=== PATIENT | female | born 1995 | race Two or more races ===

== ENCOUNTER 2018-01-19 16:20 | Observation (INO) | payer MEDICAID ==
[~2018-01-19] VITALS: Ht 160 cm; Wt 70.3 kg
[2018-01-19] MEDS ORDERED: ACETAMINOPHEN 325 MG TAB PO ONE ×2 (17:30→17:34)
== END 2018-01-19 17:45 | disposition home or self-care (01) | DRG 566 ==
LOC: LDRP 16:20
PROVIDERS: ADMIT Obstetrics & Gynecology; ATTEND Obstetrics & Gynecology
DX: O26.892 Other specified pregnancy related conditions, second trimester (principal); H53.8 Other visual disturbances; R10.9 Unspecified abdominal pain; R51 Headache; Z3A.24 24 weeks gestation of pregnancy
CPT/HCPCS: 59025; 81002; G0378

== ENCOUNTER 2018-05-11 02:32 | Observation (INO) | payer MEDICAID ==
[2018-05-11] MEDS ORDERED: PREN-96 PO (09:30)
== END 2018-05-11 03:21 | disposition home or self-care (01) | DRG 566 ==
LOC: LDRP 02:32
PROVIDERS: ADMIT Obstetrics & Gynecology; ATTEND Obstetrics & Gynecology
DX: O62.9 Abnormality of forces of labor, unspecified (principal); O48.0 Post-term pregnancy; Z3A.40 40 weeks gestation of pregnancy
CPT/HCPCS: 59025; 81002; G0378

== ENCOUNTER 2018-05-11 07:20 | Inpatient (IN) | payer MEDICAID ==
[~2018-05-11] VITALS: Ht 154.9 cm; Wt 78.0 kg
[2018-05-11] MEDS ORDERED: LACTATED RINGER'S 1,000 ML IV SCH (08:16)
[2018-05-11] MEDS ORDERED: LACT. RINGERS/OXYTOCIN 20UNITS 1,000 ML IV SCH (08:16)
[2018-05-11] MEDS ORDERED: LIDOCAINE 2% (LOCAL ANESTH.) PF 5ml SDV ID PRN (08:30)
[2018-05-11] MEDS ORDERED: NALBUPHINE HCL 10 MG/1ml INJECTION IV PRN (08:30)
[2018-05-11] MEDS ORDERED: WITCH HAZEL-GLYCERIN PAD TOP PRN (08:30)
[2018-05-11] MEDS ORDERED: DERMOPLAST 60ML BOTTLE TOP PRN (08:30)
[2018-05-11] MEDS ORDERED: PHISODERM TOP SOLN 240ML BTL TOP PRN (08:30)
[2018-05-11] MEDS ORDERED: PREN-96 PO (09:30)
[2018-05-11 09:49] LABS: Urine Bacteria NONE SEEN /hpf (None Seen); Urine Blood 3+ /uL (Negative); Urine Mucus FEW (None Seen); Urine Specific Gravity 1.023 (1.001-1.035); Urine WBC 7 /hpf (0 - 5)
[2018-05-11] MEDS ORDERED: LACT. RINGERS/OXYTOCIN 20UNITS 500 ML IV ONE (10:00)
[2018-05-11 10:31] LABS: Basophils # (auto) 0 uL; Basophils % (auto) 0.1 % (0.0-2.0); Eosinophils # (auto) 0 uL; Eosinophils % (auto) 0.1 % (0.0-7.0); Hematocrit 37.5 % (36.0-46.0); Hemoglobin 12.6 g/dL (12.2-16.2); Lymphocytes # (auto) 0.6 uL; Lymphocytes % (auto) 6.5 % (10.0-50.0); Mean Corpuscular Hemoglobin 32.2 pg (28.0-32.0); Mean Corpuscular Hgb Conc. 33.6 g/dL (32.0-36.0); Mean Corpuscular Volume 95.9 fL (80.0-100.0); Monocytes # (auto) 0.4 uL; Neutrophils # (auto) 8.2 uL; Neutrophils % (auto) 89.3 % (37.0-80.0); Nucleated Red Blood Cells % 0.1 %; Platelet Count (auto) 289 10^3/uL (140-450); Red Blood Cells 3.91 10^6/uL (4.0-5.20); Red Cell Distribution Width 13.8 % (11.8-14.3); White Blood Cell 9.1 10^3/uL (4.4-10.8)
[2018-05-11 10:44] LABS: INR 0.9 (0.9-1.15); Partial Thromboplastin Time 27.5 sec (23.78-33.04); Prothrombin Time 9.7 sec (9.27-12.13)
[2018-05-11 10:52] LABS: Albumin 2.2 g/dL (3.4-5.0); BUN/Creatinine Ratio 12.1; Bilirubin, Total 0.5 mg/dL (0.2-1.0); Potassium 3.7 mmol/L (3.5-5.1); Total Protein 6.2 g/dL (6.4-8.2)
[2018-05-11] MEDS: IBUPROFEN 600 MG TAB PO PRN ×3 (11:01→19:36)
[2018-05-11 15:10] VITALS: BP 111/57
[2018-05-11 18:57] VITALS: BP 105/65
[2018-05-11 23:00] VITALS: BP 99/51
[2018-05-12 00:59] VITALS: BP 99/51
[2018-05-12] MEDS: IBUPROFEN 600 MG TAB PO PRN ×3 (03:55→18:50)
[2018-05-12 06:05] LABS: RPR Non Reactive (Non Reactive)
[2018-05-12 07:08] VITALS: BP 99/53
[2018-05-12] MEDS ORDERED: MEASLES, MUMPS & RUBELLA VAC(MMRII) 0.5ML SC ONE (10:00)
[2018-05-12 11:10] VITALS: BP 94/53
[2018-05-12 15:00] VITALS: BP 106/59
[2018-05-12 19:11] VITALS: BP 107/65
[2018-05-12 23:00] VITALS: BP 110/62
[2018-05-13 02:56] VITALS: BP 99/56
[2018-05-13] MEDS: IBUPROFEN 600 MG TAB PO PRN ×2 (04:55→09:16)
[2018-05-13 07:10] VITALS: BP 106/61
[2018-05-13 10:30] VITALS: BP 98/55
[2018-05-13 15:25] VITALS: BP 113/68
== END 2018-05-13 15:30 | disposition home or self-care (01) | DRG 560 ==
LOC: LDRP 07:20 → OBSVTOIN 07:20
PROVIDERS: ADMIT Specialist; ATTEND Specialist
PROC: 10E0XZZ Delivery of Products of Conception, External Approach (ICD-10-PCS; principal; 2018-05-11)
PROC: 0HQ9XZZ Repair Perineum Skin, External Approach (ICD-10-PCS; 2018-05-11)
DX: O70.0 First degree perineal laceration during delivery (principal); Z37.0 Single live birth; Z3A.40 40 weeks gestation of pregnancy
CPT/HCPCS: 36415; 59025; 80053; 81001; 81002; 85025; 85610; 85730; 86592; 86850; 86900; 86901; 96372; G0378; J2001; J2590

== ENCOUNTER 2018-05-25 12:38 | Emergency (ER) | payer MEDICAID ==
[~2018-05-25] VITALS: Ht 154.9 cm; Wt 70.3 kg
[~2018-05-25 12:38] MED LIST: PREN-96 PO
[2018-05-25 13:28] LABS: Urine Bacteria NONE SEEN /hpf (None Seen); Urine Blood 3+ /uL (Negative); Urine Mucus FEW (None Seen); Urine Specific Gravity 1.032 (1.001-1.035); Urine WBC 46 /hpf (0 - 5)
[2018-05-25 14:20] LABS: Basophils # (auto) 0.1 uL; Basophils % (auto) 0.6 % (0.0-2.0); Eosinophils # (auto) 0.2 uL; Eosinophils % (auto) 1.7 % (0.0-7.0); Hemoglobin 13.5 g/dL (12.2-16.2); Lymphocytes # (auto) 0.9 uL; Lymphocytes % (auto) 8.5 % (10.0-50.0); Mean Corpuscular Hemoglobin 32.1 pg (28.0-32.0); Mean Corpuscular Hgb Conc. 33.8 g/dL (32.0-36.0); Monocytes # (auto) 0.5 uL; Monocytes % (auto) 4.6 % (0.0-12.0); Neutrophils # (auto) 8.6 uL; Neutrophils % (auto) 84.6 % (37.0-80.0); Platelet Count (auto) 385 10^3/uL (140-450); Red Blood Cells 4.21 10^6/uL (4.0-5.20); Red Cell Distribution Width 14.1 % (11.8-14.3); White Blood Cell 10.2 10^3/uL (4.4-10.8)
[2018-05-25 14:40] LABS: Albumin 3.1 g/dL (3.4-5.0); BUN/Creatinine Ratio 20.3; Bilirubin, Total 0.7 mg/dL (0.2-1.0); Calcium 8.8 mg/dL (8.5-10.1); Potassium 3.7 mmol/L (3.5-5.1); Total Protein 7.2 g/dL (6.4-8.2)
[2018-05-25 15:36] VITALS: BP 121/66
== END 2018-05-25 15:40 | disposition home or self-care (01) ==
LOC: ER 12:39
DX: N39.0 Urinary tract infection, site not specified (principal)
CPT/HCPCS: 36415; 76705; 80053; 81001; 81025; 82150; 83690; 84702; 85025

== ENCOUNTER 2020-07-07 12:11 | Observation (INO) | payer MEDICAID | END 2020-07-07 14:37 | disposition home or self-care (01) | LOC: LDRP 12:11 | PROVIDERS: ADMIT Specialist; ATTEND Specialist | DX: O26.893 Other specified pregnancy related conditions, third trimester (principal); R51.9 Headache, unspecified; R68.83 Chills (without fever); R09.81 Nasal congestion; Z3A.39 39 weeks gestation of pregnancy | CPT/HCPCS: 36415; 59025; 76818; 81002; 87426; G0378; U0003 ==

== ENCOUNTER 2020-07-12 13:09 | Inpatient (IN) | payer MEDICAID ==
[~2020-07-12] VITALS: Ht 157.5 cm; Wt 83.9 kg
[2020-07-12] MEDS ORDERED: LIDOCAINE 2%HCL (LOCAL ANESTH.) INJ 20ML MDV IJ PRN (14:30)
[2020-07-12] MEDS ORDERED: LACT. RINGERS/OXYTOCIN 20UNITS 1,000 ML IV ONE (14:30)
[2020-07-12] MEDS ORDERED: PROMETHAZINE HCL 25 MG/ML 1ML IV PRN (14:30)
[2020-07-12] MEDS ORDERED: DERMOPLAST 60ML BOTTLE TOP PRN (14:30)
[2020-07-12] MEDS ORDERED: PHISODERM TOP SOLN 240ML BTL TOP PRN (14:30)
[2020-07-12] MEDS ORDERED: WITCH HAZEL-GLYCERIN PAD TOP PRN (14:30)
[2020-07-12] MEDS ORDERED: BUTORPHANOL TARTRATE 2 MG/1 ML VIAL IM PRN (14:45)
[2020-07-12 14:56] LABS: Basophils # (auto) 0 10 ^3/uL (0-0.2); Basophils % (auto) 0.2 % (0.0-2.0); Eosinophils # (auto) 0 10 ^3/uL (0-0.8); Hematocrit 35.5 % (36.0-46.0); Lymphocytes # (auto) 0.6 10 ^3/uL (0.4-5.4); Lymphocytes % (auto) 11.6 % (10.0-50.0); Mean Corpuscular Hemoglobin 31.5 pg (28.0-32.0); Mean Corpuscular Hgb Conc. 33.9 g/dL (32.0-36.0); Mean Corpuscular Volume 92.7 fL (80.0-100.0); Monocytes # (auto) 0.2 10 ^3/uL (0-1.3); Monocytes % (auto) 4.3 % (0.0-12.0); Neutrophils # (auto) 4.4 10 ^3/uL (1.6-8.6); Neutrophils % (auto) 83.9 % (37.0-80.0); Nucleated Red Blood Cells % 0.1 %; Platelet Count (auto) 214 10^3/uL (140-450); Red Blood Cells 3.83 10^6/uL (4.0-5.20); Red Cell Distribution Width 13.6 % (11.8-14.3); White Blood Cell 5.2 10^3/uL (4.4-10.8)
[2020-07-12 15:12] LABS: Albumin 2.2 g/dL (3.4-5.0); Calcium 8.7 mg/dL (8.5-10.1)
[2020-07-12 15:13] LABS: BUN/Creatinine Ratio 4.7
[2020-07-12 15:16] LABS: Bilirubin, Total 0.5 mg/dL (0.2-1.0); Total Protein 6.5 g/dL (6.4-8.2)
[2020-07-12 15:22] LABS: Urine Bacteria FEW /hpf (None Seen); Urine Blood 1+ /uL (Negative); Urine Specific Gravity 1.015 (1.001-1.035); Urine WBC 83 /hpf (0 - 5); Urine WBC Clumps PRESENT /hpf (None Seen)
[2020-07-12 15:25] LABS: Alcohol, Urine < 3.0 mg/dL (0-10); Amphetamine Screen, Urine NEGATIVE (NEGATIVE); Barbiturate Scree,Urine NEGATIVE (NEGATIVE); Benzodiazephine Screen, Urine NEGATIVE (NEGATIVE); Cannabinoid Screen, Urine NEGATIVE (NEGATIVE); Cocaine Screen, Urine NEGATIVE (NEGATIVE); Opiate Scree,Urine NEGATIVE (NEGATIVE); Phencyclidine Screen, Urine NEGATIVE (NEGATIVE)
[2020-07-12] MEDS: LACTATED RINGER'S 1,000 ML IV SCH (15:28)
[2020-07-12 16:38] LABS: INR 0.89 (0.9-1.15); Partial Thromboplastin Time 31.6 sec (23.0-31.2)
[2020-07-12] MEDS ORDERED: ACETAMINOPHEN 325 MG TAB PO ONE (17:30)
[2020-07-12] MEDS ORDERED: BUTORPHANOL TARTRATE 2 MG/1 ML VIAL IV PRN (17:30)
[2020-07-12] MEDS ORDERED: ceFAZolin 1GM/50ML 50 ML IV SCH (19:00)
[2020-07-12] MEDS ORDERED: ceFAZolin 1GM/50ML 50 ML IV ONE (19:14)
--- NOTE | 2020-07-12 23:30 | NUR ---
Ambulation: Patient OOB with standby assistance by RN. Patient ambulated to bathroom with steady gait. Patient able to void 300ml without difficulty. [facility] teaching provided with returned demonstration by patient. Clean gown provided and bed linen changed. Patient ambulated back to bed with steady gait and no distress noted.
[2020-07-13] MEDS: ceFAZolin 1GM/50ML 50 ML IV SCH ×3 (03:03→18:53)
[2020-07-13] MEDS: LACTATED RINGER'S 1,000 ML IV SCH (03:05)
[2020-07-13 03:26] VITALS: BP 113/69
[2020-07-13 05:11] LABS: RPR Non Reactive (Non Reactive)
[2020-07-13] MEDS ORDERED: ACETAMINOPHEN 325 MG TAB PO PRN (05:15)
[2020-07-13] MEDS: IBUPROFEN 600 MG TAB PO PRN ×3 (07:11→21:24)
[2020-07-13 07:22] VITALS: BP 95/51
[2020-07-13 11:01] VITALS: BP 90/52
[2020-07-13 14:30] VITALS: BP 95/53
[2020-07-13 18:45] VITALS: BP 98/57
--- NOTE | 2020-07-13 20:46 | NUR ---
Provider: Jessica Coronado CNM on unit. SBAR given including VS and medications. Order received to D/C ancef 1 gm.
[2020-07-13 23:24] VITALS: BP 95/58
[2020-07-14 02:33] VITALS: BP 100/60
[2020-07-14] MEDS: IBUPROFEN 600 MG TAB PO PRN ×2 (02:45→06:53)
[2020-07-14 07:00] VITALS: BP 93/61
[2020-07-14 11:00] VITALS: BP 104/78
--- NOTE | 2020-07-14 12:16 | NUR ---
Discharge: Discharge instructions given as ordered. Pt encouraged to follow up with LEARNING COACH as instructed. All questions and concerns addressed. Patient verbalized understanding. Medication reconciliation completed and copy given to patient. All required/requested vaccines given and copies of vaccinations given to patient. Patient encouraged to prepare to depart unit.
--- NOTE | 2020-07-14 12:36 | NUR ---
Discharge: Patient ambulated to vehicle with all personal belongings, accompanied by staff and family member. No distress noted at time of departure, no adverse changes in status since initial assessment.
--- NOTE | 2020-07-14 13:44 | NUR ---
Patient instructed to obtain a Negative Covid test before being seen in [address] Patel office. Patient instructed that if unable to obtain a negative test to call the [facility] and follow up appointment will be made at [facility] with Dr Estrella.
== END 2020-07-14 12:36 | disposition home or self-care (01) | DRG 560 ==
LOC: LDRP 13:09 → OBSVTOIN 14:15 → LDRP 17:31
PROVIDERS: ADMIT Specialist; ATTEND Specialist
PROC: 10E0XZZ Delivery of Products of Conception, External Approach (ICD-10-PCS; principal; 2020-07-12)
PROC: 10H07YZ Insertion of Other Device into Products of Conception, Via Natural or Artificial Opening (ICD-10-PCS; 2020-07-12)
DX: O98.52 Other viral diseases complicating childbirth (principal); U07.1 COVID-19; Z37.0 Single live birth; Z3A.39 39 weeks gestation of pregnancy; O42.92 Full-term premature rupture of membranes, unspecified as to length of time between rupture and onset of labor
CPT/HCPCS: 36415; 59025; 59409; 80053; 80307; 81001; 81002; 84112; 85025; 85610; 85730; 86592; 86850; 86900; 86901; 87426; 94760; 96360; 96361; 96365; 96366; 96374; G0378; J0690; J2590

== ENCOUNTER 2020-08-04 14:08 | Emergency (ER) | payer MEDICAID ==
[~2020-08-04] VITALS: Ht 157.5 cm; Wt 72.6 kg
[2020-08-04 14:42] VITALS: BP 90/70
== END 2020-08-04 15:35 | disposition home or self-care (01) ==
LOC: ER 14:08
DX: U07.1 COVID-19 (principal)
CPT/HCPCS: 99283; C9803; U0003

== ENCOUNTER 2023-07-14 16:43 | Emergency (ER) | payer MEDICAID ==
[~2023-07-14] VITALS: Ht 157.5 cm; Wt 80.7 kg
[2023-07-14 17:59] LABS: Urine WBC None Seen /hpf (0 - 5)
[2023-07-14 18:11] LABS: Mean Corpuscular Hgb Conc. 34.5 g/dL (32.0-36.0); White Blood Cell 5.5 10^3/uL (4.4-10.8)
[2023-07-14 18:14] LABS: Basophils # (auto) 0.1 10 ^3/uL (0-0.2); Basophils % (auto) 0.9 % (0.0-2.0); Eosinophils # (auto) 0.2 10 ^3/uL (0-0.8); Eosinophils % (auto) 3.6 % (0.0-7.0); Hematocrit 35.7 % (36.0-46.0); Hemoglobin 12.3 g/dL (12.2-16.2); Lymphocytes # (auto) 1.7 10 ^3/uL (0.4-5.4); Lymphocytes % (auto) 30.6 % (10.0-50.0); Mean Corpuscular Hemoglobin 32.5 pg (28.0-32.0); Mean Corpuscular Volume 94.1 fL (80.0-100.0); Monocytes # (auto) 0.3 10 ^3/uL (0-1.3); Monocytes % (auto) 6.4 % (0.0-12.0); Neutrophils # (auto) 3.2 10 ^3/uL (1.6-8.6); Neutrophils % (auto) 58.5 % (37.0-80.0); Red Blood Cells 3.79 10^6/uL (4.0-5.20); Red Cell Distribution Width 13.1 % (11.8-14.3)
[2023-07-14 18:30] LABS: Alanine Aminotransferase 28 U/L (7-40); Albumin 4.7 g/dL (3.2-4.8); Alkaline Phosphatase 88 U/L (46-116); Anion Gap 9 (5-15); Aspartate Aminotransferase 18 U/L (13-40); BUN/Creatinine Ratio 11.4 (10.0-20.0); Blood Urea Nitrogen 8 mg/dL (9-23); Calcium 9.8 mg/dL (8.7-10.4); Carbon Dioxide 26 mmol/L (20-30); Chloride 106 mmol/L (98-107); Glucose 85 mg/dL (74-106); Potassium 3.8 mmol/L (3.5-5.1); Sodium 141 mmol/L (136-145)
[2023-07-14 18:31] LABS: Bilirubin, Total 0.5 mg/dL (0.2-1.0); Total Protein 7.4 g/dL (5.7-8.2)
[2023-07-14 18:55] LABS: Urine Bacteria NONE SEEN /hpf (None Seen); Urine Blood 3+ /uL (Negative); Urine Clarity HAZY (Clear); Urine Color Red (Yellow); Urine Protein, UAD 2+ (Negative); Urine Specific Gravity 1.016 (1.001-1.035); Urine Urobilinogen Normal (Negative); Urine pH 6.5 (5.0-8.0)
[2023-07-14 22:48] VITALS: BP 108/73; PULSE 67; RESP 16; TEMP 98.8; O2SAT 99
== END 2023-07-14 22:49 | disposition home or self-care (01) ==
LOC: ER 16:43
DX: N93.9 Abnormal uterine and vaginal bleeding, unspecified (principal); R10.2 Pelvic and perineal pain
CPT/HCPCS: 36415; 76830; 76856; 80053; 81001; 81025; 84702; 85025